=== PATIENT | male | born 1965 | race African-American/Black ===

== ENCOUNTER 2023-12-15 08:56 | Inpatient (IN) | payer OTHER ==
[2023-12-15] MEDS: DEXTROSE 50%-WATER - 25 GM/50 ML VIAL IVPUSH ONE ×2 (09:05→12:54)
[2023-12-15] MEDS ORDERED: DEXTROSE 50%-WATER 25 GM/50 ML DISP.SYRIN ONE ×2 (09:11→12:50)
[2023-12-15 09:53] LABS: INR 1.02 (0.83-1.09); PROTHROMBIN TIME (PATIENT) 11.8 SEC (9.7-13.0)
[2023-12-15 09:56] LABS: ACTIVATED PTT 37.4 SECONDS (25.2-36.5); HEMATOCRIT 46.1 % (35.4-49); HEMOGLOBIN 15.4 GM/dL (11.7-16.9); MCH 34.2 pg (25.7-33.7); MCHC 33.5 g/dl (32.0-35.9); MEAN CELL VOLUME 102.3 fl (80-96); MEAN PLT VOLUME 8.6 fl (7.5-11.1); PLATELET COUNT 260 10^3/uL (134-434); RBC 4.51 M/mm3 (4.00-5.60); RDW 14.9 % (11.9-15.9)
[2023-12-15 09:57] LABS: WHITE BLOOD COUNT 7.8 K/mm3 (4.0-10.0)
[2023-12-15 10:07] LABS: POTASSIUM 3.9 mmol/L (3.5-5.1)
[2023-12-15 10:09] LABS: CALCIUM 8.8 mg/dL (8.5-10.1)
[2023-12-15 10:10] LABS: ALBUMIN 3.9 g/dl (3.4-5.0); BLOOD UREA NITROGEN 11.3 mg/dL (7-18)
[2023-12-15 10:13] LABS: CREATININE 1.2 mg/dL (0.55-1.3); PHOSPHOROUS 3.9 mg/dL (2.5-4.9)
[2023-12-15 10:14] LABS: BILIRUBIN,TOTAL 0.7 mg/dL (0.2-1)
[2023-12-15 10:33] LABS: PH,URINE 5.5 (5.0-8.0); URINE APPEARANCE CLEAR; URINE BILIRUBIN NEGATIVE (NEGATIVE); URINE COLOR YELLOW; URINE GLUCOSE (UA) 3+ (NEGATIVE); URINE KETONE 1+ (NEGATIVE); URINE LEUK ESTERASE NEGATIVE (NEGATIVE); URINE NITRITE NEGATIVE (NEGATIVE); URINE PROTEIN TRACE (NEGATIVE)
[2023-12-15 11:01] LABS: LACTIC ACID 8.5 mmol/L (0.4-2.0)
[2023-12-15 11:35] LABS: ANISOCYTOSIS 0; MACROCYTOSIS 0; SICKELED CELLS 0
[2023-12-15 11:36] LABS: HELMET CELLS 0; HOWELL-JOLLY BODIES 0; OVALOCYTE 0; ROULEAU 0; TARGET CELLS 0; TEAR DROP CELLS 0; TOXIC GRANULATION 0
[2023-12-15] MEDS: SODIUM CHLORIDE 0.9% 500 ML INFUS.BAG IV ONE (11:37)
[2023-12-15 11:47] LABS: VENOUS BASE EXCESS -8.9 mmol/L (-2-2); VENOUS O2 SATURATION 48.4 % (70-80); VENOUS PCO2 46.7 mmHg (38-52); VENOUS PH 7.222 (7.310-7.410)
[2023-12-15] MEDS: DEXTROSE 5%-NORMAL SALINE 1,000 ML IV SCH (13:24)
[2023-12-15 13:50] LABS: COCAINE, UR NEGATIVE (NEGATIVE); METHADONE, UR NEGATIVE (NEGATIVE); OPIATES, URI NEGATIVE (NEGATIVE); PHENCYCLIDINE,URINE NEGATIVE (NEGATIVE)
[2023-12-15 13:51] LABS: URINE BARBITURATES NEGATIVE (NEGATIVE)
[2023-12-15 13:52] LABS: URINE AMPHETAMINES NEGATIVE (NEGATIVE)
[2023-12-15 13:55] LABS: LACTIC ACID 6.6 mmol/L (0.4-2.0); URINE BENZODIAZEPINES NEGATIVE (NEGATIVE)
[2023-12-15 15:45] VITALS: BMI 32.3
[2023-12-15] MEDS: SODIUM CHLORIDE NASAL SPRAY 44 ML BOTTLE NS ONE (16:32)
[2023-12-15] MEDS: THIAMINE HCL 200 MG/2 ML VIAL IVPB ONE (16:33)
[2023-12-15] MEDS: FOLIC ACID INJECTION - 1 MG, THIAMINE HCL 100 MG, MULTIVIT INJECTION ADULT 10 ML in SOD... IVPB ONE (19:35)
[2023-12-15 20:15] LABS: POTASSIUM 3.9 mmol/L (3.5-5.1)
[2023-12-15 20:16] LABS: CALCIUM 7.7 mg/dL (8.5-10.1)
[2023-12-15 20:17] LABS: BLOOD UREA NITROGEN 14.8 mg/dL (7-18); MAGNESIUM 1.6 mg/dL (1.8-2.4)
[2023-12-15 20:19] LABS: CREATININE 1.2 mg/dL (0.55-1.3)
[2023-12-15 20:20] LABS: PHOSPHOROUS 2.9 mg/dL (2.5-4.9)
[2023-12-15 20:25] LABS: LACTIC ACID 2.5 mmol/L (0.4-2.0)
[2023-12-15] MEDS: CALCIUM GLUCONATE 10% - 1,000 MG/10 ML VIAL IVPB ONE (20:47)
[2023-12-15] MEDS: MAGNESIUM SULF 50% (8.12 MEQ/2 ML-1 GM VIAL) IVPB ONE (20:47)
[2023-12-16 07:45] LABS: HEMATOCRIT 35.7 % (35.4-49); HEMOGLOBIN 12.1 GM/dL (11.7-16.9); MCHC 33.9 g/dl (32.0-35.9); MEAN CELL VOLUME 100.2 fl (80-96); PLATELET COUNT 190 10^3/uL (134-434); RBC 3.56 M/mm3 (4.00-5.60); RDW 14.3 % (11.9-15.9); WHITE BLOOD COUNT 4.5 K/mm3 (4.0-10.0)
[2023-12-16 07:56] LABS: POTASSIUM 3.6 mmol/L (3.5-5.1)
[2023-12-16 07:58] LABS: CALCIUM 7.8 mg/dL (8.5-10.1); MAGNESIUM 2.2 mg/dL (1.8-2.4)
[2023-12-16 07:59] LABS: BLOOD UREA NITROGEN 11.5 mg/dL (7-18)
[2023-12-16 08:02] LABS: PHOSPHOROUS 2.1 mg/dL (2.5-4.9)
[2023-12-16] MEDS: NAPH,MB-DB/K PH,MBDB POWDER PACKET PO ONE (09:31)
[2023-12-16] MEDS: FOLIC ACID 1 MG TABLET (FP) PO SCH (09:31)
[2023-12-16] MEDS: THIAMINE HCL 200 MG/2 ML VIAL IVPB SCH (09:31)
[2023-12-16 10:17] VITALS: BP 124/82; PULSE 83; RESP 16; TEMP 98.3
[2023-12-16] MEDS: RIVAROXABAN 2.5 MG TABLET PO SCH (11:28)
[2023-12-16] MEDS: SACUBITRIL/VALSARTAN 97 MG-103 MG TABLET PO SCH (11:28)
[2023-12-16] MEDS: SPIRONOLACTONE 25 MG TABLET PO SCH (11:29)
[2023-12-16] MEDS ORDERED: ATORVASTATIN CA 80 MG TABLET (FP) PO SCH (22:00)
[2023-12-19] MEDS ORDERED: THIAMINE HCL 100 MG TABLET (FP) PO SCH (10:00)
== END 2023-12-16 11:58 | disposition home or self-care (01) | DRG 641 ==
LOC: JER 08:56 → JERBED 13:41 → JICU 15:05
PROVIDERS: ADMIT Internal Medicine Pulmonary Disease; ATTEND Internal Medicine Pulmonary Disease
DX: E87.29 Other acidosis (principal); I11.0 Hypertensive heart disease with heart failure; I50.9 Heart failure, unspecified; I25.10 Atherosclerotic heart disease of native coronary artery without angina pectoris; I73.9 Peripheral vascular disease, unspecified; R68.0 Hypothermia, not associated with low environmental temperature; E16.2 Hypoglycemia, unspecified; F10.10 Alcohol abuse, uncomplicated; Z72.0 Tobacco use; Z95.5 Presence of coronary angioplasty implant and graft
CPT/HCPCS: 0241U-QW; 36415; 71045-TC-FY; 80048; 80053; 80307; 81003; 82803; 82962; 83605; 83735; 84100; 84439; 84443; 84484; 85025; 85027; 85610; 85730; 86850; 86900; 86901; 87040; 87086; 93005; 93010; 99285-25